=== PATIENT | male | born 1945 | race Caucasian/White ===

== ENCOUNTER → 2020-06-11 | Outpatient (CLI) | payer MEDICARE | LOC: COL.VAS 08:29 | DX: N26.1 Atrophy of kidney (terminal) (principal) ==

== ENCOUNTER 2020-12-01 20:52 | Emergency (ER) | payer MEDICARE ==
[~2020-12-01] VITALS: Ht 177.8 cm; Wt 68.2 kg
[2020-12-01 20:53] VITALS: TEMP 96.3
[2020-12-01 21:23] LABS: BASO # 0.1 (0.0-0.2); BASO % 0.8 % (0.0-2.0); EOS # 0.1 (0.0-0.7); GRAN # 4.5 (1.4-6.5); GRAN % 73.4 % (42.2-75.2); HEMATOCRIT 37.3 % (42.0-52.0); HEMOGLOBIN 12.3 g/dl (13.5-18.0); LYMPH % 15.8 % (20.0-51.0); MEAN CELL VOLUME 97 fl (80.0-100.0); MEAN CORPUSCULAR HEMOGLOBIN 32 pg (27.0-31.0); MEAN CORPUSCULAR HGB CONC 33 g/dl (33.0-37.0); MEAN PLATELET VOLUME 9.6 fl (7.4-10.4); MONO # 0.5 (0.1-0.6); MONO % 7.7 % (1.7-9.3); PLATELET COUNT 190 K/mm3 (130-400); RED BLOOD COUNT 3.85 M/mm3 (4.20-5.60); REDCELL DISTRIBUTION WIDTH-CV 13.2 % (11.5-14.5)
[2020-12-01 21:31] LABS: INR 1.2 (0.8-3.0)
[2020-12-01 21:34] LABS: ALANINE AMINOTRANSFERASE 19 U/L (4-49); ALBUMIN 3.9 gm/dL (3.5-5.0); ALKALINE PHOSPHATASE 67 U/L (50-136); ANION GAP 7 mmol/L (7-16); AST,SGOT 33 U/L (15-37); BILIRUBIN,TOTAL 0.4 mg/dL (0.0-1.0); BLOOD UREA NITROGEN 28 mg/dL (9-20); CALCIUM 9.2 mg/dL (8.4-10.2); CARBON DIOXIDE 25 mmol/L (22-30); CHLORIDE 106 mmol/L (98-107); CREATININE, serum 1.41 (0.66-1.25); GLUCOSE 119 mg/dL (74-106); PARTIAL THROMBOPLASTIN TIME 25.6 SECONDS (26.0-37.0); POTASSIUM 4.1 mmol/L (3.4-5.0); SODIUM 138 mmol/L (137-145)
[2020-12-01 21:48] LABS: TROPONIN-I < 0.012 ng/mL (0.000-0.035)
[2020-12-01 23:27] LABS: COLLECTION METHOD CLEAN CATCH
[2020-12-01 23:51] LABS: PH 6 (5-8); SQUAMOUS EPITHELIAL None Seen /hpf; URINE APPEARANCE Cloudy; URINE BACTERIA Occasional /hpf; URINE BILIRUBIN Negative (NEGATIVE); URINE BLOOD Negative (NEGATIVE); URINE COLOR Yellow; URINE GLUCOSE Negative (NEGATIVE); URINE KETONE Trace (NEGATIVE); URINE LEUKOCYTE ESTERASE 3+ (NEGATIVE); URINE NITRATE Positive (NEGATIVE); URINE PROTEIN(semi-quant) Negative (NEGATIVE); URINE UROBILINOGEN Negative (NEGATIVE); URINE WBC >50 /hpf
[2020-12-02] MEDS ORDERED: ZOFRAN ODT4 MG PO (00:06)
[2020-12-02] MEDS ORDERED: CIPRO 500MG TA500 MG PO (00:06)
[2020-12-02 00:25] LABS: LIPASE 43 U/L (23-300)
[2020-12-02 00:43] LABS: TROPONIN-I < 0.012 ng/mL (0.000-0.035)
[2020-12-02 01:00] VITALS: BP 128/70; PULSE 78
== END 2020-12-02 01:00 | disposition home or self-care (01) ==
LOC: COL.ER 20:52
PROVIDERS: Emergency Medicine
DX: N39.0 Urinary tract infection, site not specified (principal); N17.9 Acute kidney failure, unspecified
CPT/HCPCS: J0696; J2405; J7030

== ENCOUNTER 2021-12-15 12:17 | Emergency (ER) | payer MEDICARE ==
[~2021-12-15] VITALS: Ht 172.7 cm; Wt 68.2 kg
[~2021-12-15 12:17] MED LIST: CIPRO 500MG TA500 MG PO; ZOFRAN ODT4 MG PO
[2021-12-15 12:39] VITALS: TEMP 97.8
[2021-12-15 13:05] LABS: BASO # 0.1 K/mm3 (0.0-0.2); BASO % 1.4 % (0.0-2.0); EOS # 0.4 K/mm3 (0.0-0.7); EOS % 6.3 % (0.0-4.0); GRAN # 3.4 K/mm3 (1.4-6.5); GRAN % 60.8 % (42.2-75.2); HEMOGLOBIN 11.9 g/dl (13.5-18.0); LYMPH # 0.9 K/mm3 (1.2-3.4); LYMPH % 16.7 % (20.0-51.0); MEAN CELL VOLUME 98 fl (80.0-100.0); MEAN CORPUSCULAR HEMOGLOBIN 32 pg (27-31); MEAN CORPUSCULAR HGB CONC 33 g/dl (33.0-37.0); MEAN PLATELET VOLUME 9.6 fl (7.4-10.4); MONO # 0.8 K/mm3 (0.1-0.6); MONO % 14.4 % (1.7-9.3); PLATELET COUNT 234 K/mm3 (130-400); RED BLOOD COUNT 3.68 M/mm3 (4.20-5.60); REDCELL DISTRIBUTION WIDTH-CV 13.1 % (11.5-14.5)
[2021-12-15 13:06] LABS: HEMATOCRIT 36.1 % (42.0-52.0)
[2021-12-15 13:26] LABS: ALANINE AMINOTRANSFERASE 14 U/L (0-55); ALBUMIN 3.4 gm/dL (3.4-4.8); ALKALINE PHOSPHATASE 87 U/L (40-150); ANION GAP 11 mmol/L (7-16); AST,SGOT 20 U/L (5-34); BILIRUBIN,TOTAL 0.5 mg/dL (0.2-1.2); BLOOD UREA NITROGEN 33 mg/dL (8-26); CALCIUM 9.1 mg/dL (8.4-10.2); CARBON DIOXIDE 22 mmol/L (23-31); CHLORIDE 103 mmol/L (98-107); CREATININE, serum 1.53 mg/dL (0.72-1.25); GLUCOSE 102 mg/dL (70-99); POTASSIUM 4.9 mmol/L (3.5-4.5); SODIUM 136 mmol/L (136-145)
[2021-12-15 13:45] LABS: TSH w REFLEX 0.476 uIU/mL (0.350-4.940)
[2021-12-15 13:46] LABS: TROPONIN-I < 0.010 ng/mL (0.00-0.033)
[2021-12-15 15:39] VITALS: BP 123/73; PULSE 72
== END 2021-12-15 15:40 | disposition home or self-care (01) ==
LOC: COL.ER 12:17
PROVIDERS: Emergency Medicine
DX: S09.90XA Unspecified injury of head, initial encounter (principal); S01.01XA Laceration without foreign body of scalp, initial encounter; R55 Syncope and collapse; W18.39XA Other fall on same level, initial encounter